=== PATIENT | female | born 1985 | race Asian ===

== ENCOUNTER 2016-08-05 08:44 | Outpatient (CLI) | payer OTHER ==
[2016-08-06 07:06] LABS: HEPATITIS B CORE AB, TOTAL Negative (Negative); HEPATITIS B SURFACE AG Negative (Negative); HEPATITIS C VIRUS AB <0.1 s/co ratio (0.0-0.9)
== END 2016-08-05 19:01 | disposition home or self-care (01) ==
LOC: SLB 08:44
PROVIDERS: ATTEND Internal Medicine Hospice and Palliative Medicine
DX: Z77.21 Contact with and (suspected) exposure to potentially hazardous body fluids (principal)
CPT/HCPCS: 36415; 86704; 86706; 86803; 87340